=== PATIENT | female | born 1965 | race Two or more races ===

== ENCOUNTER 2018-10-23 01:59 | Inpatient (IN) | payer OTHER ==
[~2018-10-23] VITALS: Ht 149.9 cm; Wt 51.3 kg
[2018-10-23] MEDS ORDERED: IV NS 0.9% 1,000 ML IV PRN (05:43)
[2018-10-23] MEDS ORDERED: MAG HYDROX/AL HYDROX/SIMETH 30 ML UDC PO PRN (06:00)
[2018-10-23] MEDS ORDERED: MAGNESIUM HYDROXIDE 30 ML UDC PO PRN (06:00)
[2018-10-23] MEDS ORDERED: ONDANSETRON HCL/PF 4 MG/2 ML VIAL IVP PRN (06:00)
[2018-10-23] MEDS ORDERED: Z GUARD REMEDY 2 OZ OINT TP PRN (06:00)
[2018-10-23] MEDS ORDERED: ACETAMINOPHEN 325 MG TABLET PO PRN (06:00)
--- NOTE | 2018-10-23 06:30 | NUR ---
PLANT PULLER OPENING NOTES RECEIVED PATIENT DIRECT ADMIT FROM [facility]. PATIENT A/O X4, PATIENT ON RA SATURATING WELL 98%. PATIENT DIAGNOSIS IS V/N, DEHYDRATION AND LOW SODIUM. SKIN INTACT. PATIENT IS NOT COMPLAIN OF ANY PAIN AT THIS TIME. ALL SAFETY MEASURES IN PLACE, BED LOW/LOCKED. SIDE RAILS UPX2. CALL LIGHT WITHIN REACH. WILL CONTINUE TO MONITOR.
[2018-10-23 06:36] LABS: BASOPHILS % (AUTO) 0.3 % (0.0-2.0); EOSINOPHILS % (AUTO) 0.1 % (0.0-6.0); HEMATOCRIT 45 % (33-45); HEMOGLOBIN 15.3 g/dL (11.5-14.8); LYMPHOCYTES # (AUTO) 1.5 /CMM (0.8-4.8); LYMPHOCYTES % (AUTO) 16.4 % (20.0-44.0); MEAN CORPUSCULAR HGB CONC 34 g/dl (31.0-36.0); MEAN CORPUSCULAR VOLUME 84 fL (82-100); MONOCYTES # (AUTO) 1.1 /CMM (0.1-1.30); NEUTROPHILS # (AUTO) 6.5 /CMM (1.8-8.9); NEUTROPHILS % (AUTO) 71.2 % (43.0-81.0); PLATELET COUNT (AUTO) 271 /CMM (150-450); RED BLOOD CELL COUNT(AUTO) 5.31 MIL/uL (4.0-5.2); WHITE BLOOD COUNT (AUTO) 9.2 K/uL (4.3-11.0)
--- NOTE | 2018-10-23 06:50 | NUR ---
FLOOR RUNNER NOTE, PATIENTS BUN IS 87 AND LACTIC ACID 3.3. AM RN NOTED.
[2018-10-23 06:58] VITALS: BP 124/79
[2018-10-23 06:58] LABS: ALANINE AMINOTRANSFERASE 14 U/L (12-78); ALBUMIN 3.8 g/dL (3.4-5.0); ALKALINE PHOSPHATASE 100 U/L (46-116); ASPARTATE AMINOTRANSFERASE 16 U/L (15-37); BILIRUBIN,TOTAL 0.7 mg/dL (0.2-1.0); CALCIUM, SERUM 9.1 mg/dL (8.5-10.1); CARBON DIOXIDE 22 mmol/L (21-32); CHLORIDE 83 mmol/L (98-107); CHOLESTEROL 196 mg/dL (<200); CREATININE 3.9 mg/dL (0.6-1.3); GLUCOSE 165 mg/dL (74-106); HDL CHOLESTEROL 57 mg/dL (40-60); LDL 119 mg/dL (0-99); MAGNESIUM 3.2 mg/dL (1.8-2.4); PHOSPHORUS 5.5 mg/dL (2.5-4.9); POTASSIUM 2.9 mmol/L (3.5-5.1); SODIUM SERUM 123 mmol/L (136-145); THYROID STIMULATING HORMONE 0.472 uIU/mL (0.358-3.74); TOTAL PROTEIN, SERUM 8.5 g/dL (6.4-8.2); TRIGLYCERIDES 117 mg/dL (30-150)
[2018-10-23 07:02] LABS: UREA NITROGEN, BLOOD 87 mg/dL (7-18)
--- NOTE | 2018-10-23 07:15 | NUR ---
WATER TREATMENT PLANT REPAIRER CLOSING NOTES PATIENT IN BED RESTING ON NOHEMY SATURATING WELL 98%. DIRECT ADMIT FROM [facility]. PATIENT A/O X4, PATIENT DIAGNOSIS IS V/N, DEHYDRATION AND LOW SODIUM. PATIENT IS NPO. SKIN INTACT. PATIENT HAS NO PAIN AT THIS TIME. ALL SAFETY MEASURES IN PLACE, BED LOW/LOCKED. SIDE RAILS UPX2. CALL LIGHT WITHIN REACH. WILL ENDORSE TO AM RN FOR MICHEL.
--- NOTE | 2018-10-23 07:20 | NUR ---
RN INITIAL NOTE PATIENT IN BED, ASLEEP BUT EASILY AROUSABLE. DIRECT ADMISSION FROM [facility] CAME AROUND 0520. ALERT AND ORIENTEDX4. CHIEF COMPLAINT OF N/V. ON TELE MONITOR, SR. SKIN INTACT. HAS RIGHT AC #20 WITH NS AT 50 ML/HR. NPO FOR NOW. PER NOC SHIFT RN, PATIENT AMBULATORY WITH ASSIST. NO EPISODES OF N/V THIS AM. NO COMPLAINS OF ANY PAIN NOR SOB AT THIS TIME. BED LOCKED AND IN LOWEST POSITION. CALL LIGHT WITHIN REACH. WILL CONT TO MONITOR
[2018-10-23 08:00] VITALS: BP_SYST 118; BP_DIAS 81; BP_DIAS 82
[2018-10-23] MEDS ORDERED: FAMOTIDINE/PF INJ 20 MG/2 ML VIAL IV SCH (08:00)
[2018-10-23] MEDS ORDERED: METO25TA6 PO (08:23)
[2018-10-23] MEDS ORDERED: LISI-607 PO (08:23)
[2018-10-23] MEDS ORDERED: FURO40TA5 PO (08:23)
[2018-10-23] MEDS ORDERED: ASPI81TA44 PO (08:23)
[2018-10-23] MEDS ORDERED: SPIR25TA6 PO (08:23)
[2018-10-23] MEDS ORDERED: CARV3.122 PO (08:23)
[2018-10-23 08:31] LABS: BILIRUBIN,DIRECT 0.2 mg/dL (0.0-0.2)
[2018-10-23] MEDS: FAMOTIDINE/PF INJ 20 MG/2 ML VIAL IV SCH ×2 (08:44→16:28)
[2018-10-23 12:00] VITALS: BP 128/73
--- NOTE | 2018-10-23 15:24 | NUR ---
RN NOTE PATIENT VERY AGITATED DUE TO THE FACT THAT SHE CANNOT EAT ANYTHING. MD MADE AWARE. NEW ORDERS BNP, BMP, CXR, US KIDNEYS, EKG, OSMOLALITY URINE AND BLOOD. MED RECON DONE. MD MADE AWARE THAT PATIENT IS TAKING LASIX DAILY. ONLY BB ARE CONTINUED
[2018-10-23 15:31] LABS: CALCIUM, SERUM 9.2 mg/dL (8.5-10.1); CREATININE 2.2 mg/dL (0.6-1.3); POTASSIUM 3.1 mmol/L (3.5-5.1)
--- NOTE | 2018-10-23 15:45 | NUR ---
RN NOTE \ CRITICAL VALUE CARLEY Cheng MD MADE AWARE
[2018-10-23 16:00] VITALS: BP 113/67
[2018-10-23] MEDS: Potassium Chloride 20 MEQ in IV NS 0.9% 1,000 ML IV PRN (16:26)
[2018-10-23] MEDS: METOPROLOL TARTRATE 25 MG TABLET PO SCH (16:29)
[2018-10-23] MEDS: CARVEDILOL 3.125 MG TABLET PO SCH (16:29)
[2018-10-23 16:38] LABS: APPEARANCE,URINE SL CLOUDY (CLEAR); BILIRUBIN,URINE NEGATIVE (NEGATIVE); BLOOD, URINE TRACE-INTA Ery/uL (NEGATIVE); COLOR,URINE YELLOW (YELLOW); KETONES,URINE NEGATIVE (NEGATIVE); LEUKOCYTE ESTERASE ,URINE 1+ (NEGATIVE); NITRITE, URINE NEGATIVE (NEGATIVE); PROTEIN,URINE TRACE mg/dl (NEGATIVE); UGLUCOSE NEGATIVE (NEGATIVE); UROBILINOGEN,URINE 0.2 EU/dL (0.2)
[2018-10-23 16:53] LABS: WBC,URINE 21-50 /HPF (0-3)
[2018-10-23 16:54] LABS: BACTERIA,URINE Many /HPF (None Seen); SQUAMOUS EPITHELIAL CELL,UR Moderate /HPF (None Seen); TRICHOMONAS,URINE Few /HPF (None Seen)
[2018-10-23 16:55] LABS: MUCUS,URINE Moderate /LPF (None Seen)
--- NOTE | 2018-10-23 17:30 | NUR ---
RN NOTE DIET CHANGED TO REGULAR DIET PER MD
--- NOTE | 2018-10-23 19:00 | NUR ---
RN CLOSING NOTE PATIENT IN BED, AWAKE AND ALERT. FINALLY HAD SOMETHING TO EAT. HAS RIGHT AC #20 WITH KCL 20 MEQ IN NS RUNNING AT 80 ML/HR. NO COMPLAINS OF ANY PAIN, SOB, N/V. ORDERED SOME TESTS, PENDING RESULTS. BED IN LOWEST POSITION. PATIENT AMBULATES THROUGH THE HALLWAY, STEADY GAIT. CALL LIGHT WITHIN REACH. WILL ENDORSE TO NOC SHIFT RN FOR MICHEL
--- NOTE | 2018-10-23 19:52 | NUR ---
INSTALLATION TECHNICIAN INITIAL NOTE PATIENT IN BED, ALERT AND ORIENTEDX4. ON TELE MONITOR, SR. SKIN INTACT. HAS RIGHT AC #20 WITH NS WITH [id number], PATIENT AMBULATORY WITH ASSIST. NO EPISODES OF N/V AT THIS TIME, DINNER TRAY A BEDSIDE, WELL TOLERATED. NO COMPLAINS OF ANY PAIN NOR SOB AT THIS TIME. BED LOCKED AND IN LOWEST POSITION. CALL LIGHT WITHIN REACH. WILL CONT TO MONITOR
[2018-10-23 20:16] VITALS: BP 104/60
[2018-10-23] MEDS ORDERED: CEFTRIAXONE 1 G VIAL ONE (23:09)
[2018-10-23] MEDS: CEFTRIAXONE 1 G in IV D5W 50 ML IV SCH (23:13)
[2018-10-24] VITALS: BP 110/56
[2018-10-24 04:00] VITALS: BP 128/61
--- NOTE | 2018-10-24 07:10 | NUR ---
RN INITIAL NOTE PATIENT IN BED, ASLEEP BUT EASILY AROUSABLE. ALERT AND ORIENTEDX4. ON TELE MONITOR, SR. SKIN INTACT. HAS RIGHT AC #20 WITH KCL 20 MEQ IN NS AT 80 ML/HR. PATIENT AMBULATORY, WITH STEADY GAIT. NO EPISODES OF N/V. NO COMPLAINS OF ANY PAIN NOR SOB AT THIS TIME. BED LOCKED AND IN LOWEST POSITION. CALL LIGHT WITHIN REACH. WILL CONT TO MONITOR
[2018-10-24 08:00] VITALS: BP 109/62
[2018-10-24 08:08] LABS: BASOPHILS % (AUTO) 0.6 % (0.0-2.0); EOSINOPHILS % (AUTO) 0.6 % (0.0-6.0); HEMATOCRIT 42 % (33-45); HEMOGLOBIN 14.3 g/dL (11.5-14.8); LYMPHOCYTES # (AUTO) 2.2 /CMM (0.8-4.8); LYMPHOCYTES % (AUTO) 32.6 % (20.0-44.0); MEAN CORPUSCULAR HGB CONC 34 g/dl (31.0-36.0); MEAN CORPUSCULAR VOLUME 85 fL (82-100); MONOCYTES # (AUTO) 0.9 /CMM (0.1-1.30); MONOCYTES % (AUTO) 14.2 % (2.0-12.0); NEUTROPHILS # (AUTO) 3.4 /CMM (1.8-8.9); PLATELET COUNT (AUTO) 229 /CMM (150-450); RED BLOOD CELL COUNT(AUTO) 4.96 MIL/uL (4.0-5.2); WHITE BLOOD COUNT (AUTO) 6.6 K/uL (4.3-11.0)
[2018-10-24] MEDS: FAMOTIDINE/PF INJ 20 MG/2 ML VIAL IV SCH ×2 (08:17→16:22)
[2018-10-24] MEDS: ASPIRIN EC 81 MG TABLET.DR PO SCH (08:17)
[2018-10-24] MEDS: CARVEDILOL 3.125 MG TABLET PO SCH ×2 (08:18→16:23)
[2018-10-24] MEDS: METOPROLOL TARTRATE 25 MG TABLET PO SCH ×2 (08:18→16:23)
[2018-10-24 08:20] LABS: CALCIUM, SERUM 8.6 mg/dL (8.5-10.1); CREATININE 1.3 mg/dL (0.6-1.3); MAGNESIUM 2.9 mg/dL (1.8-2.4); PHOSPHORUS 2.3 mg/dL (2.5-4.9); POTASSIUM 2.9 mmol/L (3.5-5.1)
[2018-10-24] MEDS ORDERED: K PHOS NEUTRAL 250 MG TABLET PO ONE (11:00)
--- NOTE | 2018-10-24 11:58 | NUR ---
RN NOTE DAUGHTER AT BEDSIDE, PATIENT ASKED FOR A WHEELCHAIR TO GO TO THE PATIO OUTSIDE TO GET SOME FRESH AIR WITH HER DAUGHTER AND GRANDDAUGHTERS
[2018-10-24 16:00] VITALS: BP 112/63
--- NOTE | 2018-10-24 16:23 | NUR ---
RN NOTE PER DR ESPINOZA, HOLD COREG. PATIENT IS TAKING 2 BB'S
--- NOTE | 2018-10-24 16:44 | NUR ---
RN NOTE PATIENT REMOVED HER OWN IV ON RIGHT AC #20. CHECKED THE SITE, NOT BLEEDING.
--- NOTE | 2018-10-24 18:44 | NUR ---
RN CLOSING NOTE PATIENT IN BED, AWAKE AND ALERT. HAS RIGHT HAND #22 WITH KCL 20 MEQ IN NS RUNNING AT 80 ML/HR. NO COMPLAINS OF ANY PAIN, SOB, N/V AT THIS TIME. BED IN LOWEST POSITION. PATIENT AMBULATES THROUGH THE HALLWAY, STEADY GAIT. CALL LIGHT WITHIN REACH. WILL ENDORSE TO NOC SHIFT RN FOR MICHEL
--- NOTE | 2018-10-24 19:35 | NUR ---
MS RN OPENING NOTE RESERVED PATIENT IN BED, AWAKE AND ALERT. HAS RIGHT HAND #22 WITH KCL 20 MEQ IN NS RUNNING AT 80 ML/HR. NO COMPLAINS OF PAIN. NO ACUTE DISTRESS OR SOB AT THIS TIME. NO N/V AT THIS TIME. PATIENT IS ABLE TO AMBULATE THROUGH THE HALLWAY, STEADY GAIT. BED IN LOWEST POSITION CALL LIGHT WITHIN REACH. WILL CONTINUE TO MONITOR THE PATIENT CLOSELY.
[2018-10-24 20:00] VITALS: BP 110/53
[2018-10-24] MEDS: CEFTRIAXONE 1 G in IV D5W 50 ML IV SCH (22:36)
[2018-10-24] MEDS: Potassium Chloride 20 MEQ in IV NS 0.9% 1,000 ML IV PRN (22:36)
[2018-10-25 04:00] VITALS: BP 111/67
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
--- NOTE | 2018-10-25 06:29 | NUR ---
MS RN CLOSING NOTE PATIENT IN BED, AWAKE AND ALERT. HAS RIGHT HAND #22 WITH KCL 20 MEQ IN NS RUNNING AT 80 ML/HR. NO COMPLAINS OF PAIN. NO ACUTE DISTRESS OR SOB AT THIS TIME. NO N/V DURING LARRY OPERATOR. PATIENT IS ABLE TO AMBULATE THROUGH THE HALLWAY, STEADY GAIT. BED IN LOWEST POSITION CALL LIGHT WITHIN REACH. WILL ENDORSE THE PATIENT TO AM RN FOR MICHEL.
[2018-10-25 06:48] LABS: BASOPHILS % (AUTO) 0.6 % (0.0-2.0); EOSINOPHILS % (AUTO) 1.3 % (0.0-6.0); HEMATOCRIT 37 % (33-45); HEMOGLOBIN 12.6 g/dL (11.5-14.8); LYMPHOCYTES % (AUTO) 46.7 % (20.0-44.0); MEAN CORPUSCULAR HGB CONC 34 g/dl (31.0-36.0); MEAN CORPUSCULAR VOLUME 86 fL (82-100); MONOCYTES # (AUTO) 0.9 /CMM (0.1-1.30); MONOCYTES % (AUTO) 13.5 % (2.0-12.0); NEUTROPHILS # (AUTO) 2.4 /CMM (1.8-8.9); NEUTROPHILS % (AUTO) 37.9 % (43.0-81.0); PLATELET COUNT (AUTO) 201 /CMM (150-450); RED BLOOD CELL COUNT(AUTO) 4.33 MIL/uL (4.0-5.2); WHITE BLOOD COUNT (AUTO) 6.3 K/uL (4.3-11.0)
[2018-10-25 07:28] LABS: ALBUMIN 3.2 g/dL (3.4-5.0); BILIRUBIN,TOTAL 0.2 mg/dL (0.2-1.0); CALCIUM, SERUM 8.6 mg/dL (8.5-10.1); CREATININE 0.8 mg/dL (0.6-1.3); MAGNESIUM 2.1 mg/dL (1.8-2.4); PHOSPHORUS 1.7 mg/dL (2.5-4.9); POTASSIUM 4.2 mmol/L (3.5-5.1)
[2018-10-25 08:00] VITALS: BP 98/49
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
[2018-10-25] MEDS: CARVEDILOL 3.125 MG TABLET PO SCH ×2 (09:00→17:54)
[2018-10-25] MEDS: FAMOTIDINE/PF INJ 20 MG/2 ML VIAL IV SCH ×2 (09:00→17:54)
[2018-10-25] MEDS: ASPIRIN EC 81 MG TABLET.DR PO SCH (09:00)
[2018-10-25] MEDS: METOPROLOL TARTRATE 25 MG TABLET PO SCH ×2 (09:00→19:02)
--- NOTE | 2018-10-25 09:00 | NUR ---
MS RN NOTES PT REFUSED MORNING MEDICATION 0900. SHE STATED SHE WANTS TO SEE A DR BEFORE HAVING MEDS.
--- NOTE | 2018-10-25 10:54 | NUR ---
PATIENT NONCOMPLIANT FOUND SMOKING OUTSIDE PATIO,REEDUCATED ABOUT NO SMOKING POLICY AND OFFERED SMOKING CESSATION.
--- NOTE | 2018-10-25 10:55 | NUR ---
PLACED CIGARETTE/CLAM BED WORKER ON CONTRABAND LOCKER. MADE AWARE.
[2018-10-25] MEDS ORDERED: K PHOS NEUTRAL 250 MG TABLET PO ONE (11:00)
[2018-10-25] MEDS: NICOTINE PATCH (14MG) 14 MG PATCH.TD24 TD SCH (13:00)
[2018-10-25] MEDS ORDERED: IV NS 0.9% 1,000 ML IV PRN (13:00)
--- NOTE | 2018-10-25 13:52 | NUR ---
MS RN NOTES FLUSHED THE RIGHT HL AND PT COMPLAINED OF PAIN. REQUESTED TO GIVE IT A TIME AND START NORMAL SALINE AGAIN. REFUSED TO START A NEW IV LINE
--- NOTE | 2018-10-25 15:10 | NUR ---
MS RN NOTES PT WENT OUTSIDE TO HAVE SOME FRESH AIR. SHE IS STABLE. WILL CONTINUE TO MONITOR HER.
[2018-10-25 16:00] VITALS: BP 108/60
--- NOTE | 2018-10-25 16:11 | NUR ---
MS RN NOTES PT REFUSED TO GET IV NS 1000ML. SHE COMPLAINS OF PAIN AT IV SITE AND REFUSES TO HAVE NEW ONE.
--- NOTE | 2018-10-25 19:15 | NUR ---
MS RN CLOSING NOTES PT IN BED RESTING COMFORTABLY. ALL NEEDS ATTENDED. NO SIGNS OF SOB AND DISCOMFORT. NORMAL SALINE IS RUNNING ON RIGHT ARM. PT HAD HER DINNER 100%. ALL SAFETY MEASURES OBSERVED. BED AT LOWEST POSITION LOCKED, CALL LIGHT WITHIN REACH AND SIDE RAILS UPX2. WILL ENDORSE TO MOBILE SECURITY SPECIALIST NURSE.
[2018-10-25 20:00] VITALS: BP 135/45
--- NOTE | 2018-10-25 20:14 | NUR ---
RN MS INITIAL NOTE RECEIVED PT ALERT ORIENTED SITTING IN BED. HAS RIGHT HAND #22 . FLUSHED WELL. PT COMPLAINED ABOUT NOT BEING LET OUT TO SMOKE FREELY.COMFORT FOODS OFFERED AROUND THE CLOCK, REQUESTED TO ADRESS ANY CONCERNS TO NURSING STAFF.NO ACUTE DISTRESS OR SOB AT THIS TIME. NO N/V AT THIS TIME. PATIENT IS ABLE TO AMBULATE BY HERSELF, STEADY GAIT. BED IN LOWEST POSITION CALL LIGHT WITHIN REACH. WILL CONTINUE TO MONITOR.
[2018-10-25] MEDS: CEFTRIAXONE 1 G in IV D5W 50 ML IV SCH (21:52)
[2018-10-26 00:34] VITALS: BP 137/50
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
[2018-10-26 07:07] LABS: BASOPHILS % (AUTO) 0.7 % (0.0-2.0); HEMATOCRIT 35 % (33-45); HEMOGLOBIN 11.8 g/dL (11.5-14.8); LYMPHOCYTES # (AUTO) 3.1 /CMM (0.8-4.8); LYMPHOCYTES % (AUTO) 48.3 % (20.0-44.0); MEAN CORPUSCULAR HGB CONC 34 g/dl (31.0-36.0); MEAN CORPUSCULAR VOLUME 87 fL (82-100); MONOCYTES # (AUTO) 0.9 /CMM (0.1-1.30); MONOCYTES % (AUTO) 13.8 % (2.0-12.0); NEUTROPHILS # (AUTO) 2.1 /CMM (1.8-8.9); NEUTROPHILS % (AUTO) 33.2 % (43.0-81.0); PLATELET COUNT (AUTO) 184 /CMM (150-450); RED BLOOD CELL COUNT(AUTO) 4.05 MIL/uL (4.0-5.2); WHITE BLOOD COUNT (AUTO) 6.4 K/uL (4.3-11.0)
[2018-10-26 07:27] LABS: CALCIUM, SERUM 8.7 mg/dL (8.5-10.1); CREATININE 0.6 mg/dL (0.6-1.3); POTASSIUM 4.7 mmol/L (3.5-5.1)
--- NOTE | 2018-10-26 07:30 | NUR ---
MS RN INITIAL NOTE AWAKE ALERT AND ORIENTED. DENIES PAIN OR DISCOMFORT. DENIES SOB, ON ROOM AIR. SKIN WARM AND DRY TO TOUCH. IVF RUNNING. SIDE RAILS UP AND LOCKED. BED KEPT AT LOWEST POSITION. CALL LIGHT KEPT WITHIN EASY REACH . WILL CONTINUE TO MONITOR.
[2018-10-26 08:00] VITALS: BP 124/66
[2018-10-26] MEDS: CARVEDILOL 3.125 MG TABLET PO SCH (09:00)
[2018-10-26] MEDS: NICOTINE PATCH (14MG) 14 MG PATCH.TD24 TD SCH (09:00)
[2018-10-26 09:27] VITALS: BP 124/66
[2018-10-26] MEDS: ASPIRIN EC 81 MG TABLET.DR PO SCH (09:27)
[2018-10-26] MEDS: FAMOTIDINE/PF INJ 20 MG/2 ML VIAL IV SCH (09:27)
[2018-10-26] MEDS: METOPROLOL TARTRATE 25 MG TABLET PO SCH (09:27)
--- NOTE | 2018-10-26 10:25 | NUR ---
MS RN NOTE PATIENT REQUESTED FOR SHOWER, INFORMED JUVENTINO DIAL. WITH ORDERS PATIENT OK FOR SHOWER.
[2018-10-26] MEDS ORDERED: CEPH-570 PO (13:20)
--- NOTE | 2018-10-26 13:48 | NUR ---
MS RN NOTE SEE AND EXAMINED BY CERTIFIED NURSE MIDWIFE
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
--- NOTE | 2018-10-26 14:51 | NUR ---
MS RN NOTE PATIENT DISCHARGED WITH ALL BELONGINGS. BROUGHT TO FRONT LOBBY IN STABLE CONDITION VIA WHEELCHAIR. PRESCRIPTION GIVEN. DISCHARGE INSTRUCTIONS PROVIDED. IV AND ID BAND REMOVED.
== END 2018-10-26 14:30 | disposition home or self-care (01) | DRG 469 ==
LOC: TELE1 05:19 → MEDSG1 10-24 11:15
PROVIDERS: ADMIT Internal Medicine; ATTEND Nurse Practitioner Acute Care
DX: N17.0 Acute kidney failure with tubular necrosis (principal); E22.2 Syndrome of inappropriate secretion of antidiuretic hormone; E83.41 Hypermagnesemia; E83.39 Other disorders of phosphorus metabolism; E87.2 Acidosis; E86.0 Dehydration; E78.5 Hyperlipidemia, unspecified; D64.9 Anemia, unspecified; I10 Essential (primary) hypertension; E87.6 Hypokalemia; E86.1 Hypovolemia; N39.0 Urinary tract infection, site not specified; T76.91XA Unspecified adult maltreatment, suspected, initial encounter
CPT/HCPCS: 36415; 71045-TC; 80048-TC; 80053-TC; 80061-TC; 81000-TC; 82248-TC; 83605-TC; 83735-TC; 83880; 83935-TC; 84100-TC; 84443-TC; 84484-TC; 85025-TC; 87040-TC; 87086-TC; 93307-TC; 97116-TC; 97530-TC; A6253; G0378; J0696; J3480; J3490; J7030; J7060